=== PATIENT | female | born 1950 | race Caucasian/White ===

== ENCOUNTER → 2016-12-17 | Outpatient (CLI) | payer OTHER ==
[~2016-12-17] MED LIST: ALBUTEROL MININEB NEB; ALBUTEROL17 GM; ALBUTEROL17 GM INH; ALBUTEROL2.5 MG/0.5 IH; ALLEGRA30 MG/5 ML; AMARYL; AMARYL2 MG; ATARAX; Asmanex IH; CALAN PO; CARDURA1 M1; CARDURA4 M1 PO; CARDURA4 M2; CHLORTHALIDONE25 MG PO; CLINDAMYCIN HC300 MG PO; COMBIVENT MININEB; COMBIVENT RESPIM4 GM IH; COMBIVENT RESPIM4 GM INH; DULERA 100 MCG/13 GM; FEXOFENADINE HC30 MG PO; FLEXATINE; FLUOXETINE HCL40 M1 PO; FLUOXETINE HCL60 MG PO; GLUCOPHAGE500 M1 PO; GLUCOTROL PO; HYDROCHLOROTHIA25 MG PO; HYDROXYZINE HCL25 M1; HYDROXYZINE HCL25 M1 PO; K-DUR20 ME1 PO; KEFLEX PO; LASIX20 MG; LEVAQUIN PO; LISINOPRIL PO; LORTAB 5-325 M1 EACH PO; LOSARTAN POTAS100 MG PO; LOSARTAN POTASS25 MG; MELATONIN3 M4 PO; METFORMIN PO; MUCINEX D1 TAB.SR1 PO; NAPROSYN375 MG PO; NYSTATIN-TRIAMC15 G1; OXYGEN; PREDNISONE PO; PRINCIPEN500 M1 PO; PROZAC PO; PROZAC10 M1; SARAFEM20 MG; SYMBICORT INH; TRAZODONE HCL100 MG PO; TRAZODONE PO; ULTRAM PO; VERAPAMIL ER100 MG; VERAPAMIL ER240 M1; VERAPAMIL ER240 M1 PO; VIBRAMYCIN100 M1 DOB; VITAMIN D22000 UNIT PO; VOLTAREN75 MG PO; ZITHROMAX PO
--- NOTE | ~2016-12-17 | US77 ---
[facility]. [facility] A Service of [facility] & [facility] RADIOLOGY TEXT RESULTS PATIENT: LUISA PITT LOCATION: [facility] : 54 UNIT #: [id number] AGE: [address]: Pasha Dillard MD SEX: F ORDER DR: [id number] [place] [id number] MR#: [id number] Acc #: [id number] NAME: LUISA PITT : 1950 SEX: F STUDY DATE/TIME: 12/17/2016 9:14 UNIT: [facility] ROOM: STUDY DESCRIPTION: US Kidney Bilateral Complete Attending Physician: Pasha Dillard M.D. Referring Physician: Pasha Dillard M.D. Ordering Physician: Pasha Dillard M.D. Primary Care Physician: María Elena Cantrell Aprn MEDICAL IMAGING REPORT This report is preliminary unless electronic signature is present. EXAM Renal ultrasound complete, 12/17/2016. HISTORY Chronic kidney disease stage 2, diabetes and hypertension, followup. FINDINGS The right kidney measures 9.5 cm while the left kidney measures 10.7 cm in longitudinal dimensions. There is no evidence of hydronephrosis or nephrolithiasis. No cystic or solid mass lesions were seen on either kidney. There is normal renal cortical echogenicity. Images of the bladder are normal. IMPRESSION 1. Negative renal ultrasound. 2. Images of the bladder are normal. Dictated by... Josh Gamez M.D. THIS IS AN ELECTRONICALLY VERIFIED REPORT Josh Gamez M.D. at 12/18/2016 8:11 AM ESAU/misael TD: 12/17/2016 11:51 JOB #: [id number] MEDICAL IMAGING REPORT Page 1 of 1
== END | disposition home or self-care (01) ==
LOC: SGUS 08:46
DX: N18.2 Chronic kidney disease, stage 2 (mild) (principal)
CPT/HCPCS: 76775

== ENCOUNTER 2017-03-02 15:15 | Emergency (ER) | payer OTHER ==
--- NOTE | ~2017-03-02 | CR72 ---
[facility]. [facility] A Service [facility] RADIOLOGY TEXT RESULTS PATIENT: LUISA PITT LOCATION: SED : 54 UNIT #: [id number] AGE: [address]: Jennifer Dean PAC SEX: F ORDER DR: [id number] [place] [id number] MR#: [id number] Acc #: [id number] NAME: LUISA PITT. : 1950 SEX: F STUDY DATE/TIME: 03/02/2017 16:13 UNIT: SED ROOM: STUDY DESCRIPTION: CR Chest Single View Portable Attending Physician: Jennifer Dean Pa-C Ordering Physician: Jennifer Dean Pa-C Primary Care Physician: María Elena Cantrell Aprn MEDICAL IMAGING REPORT This report is preliminary unless electronic signature is present. EXAM Frontal chest, 03/02/2017 INDICATION 66-year-old female with shortness of air with exertion for a week. Hypertension. TECHNIQUE Frontal chest compared 10/16/2015 FINDINGS Cardiac silhouette is within normal limits. The vascularity is unremarkable. Lung volumes are low and there is bronchovascular crowding. Exam is degraded by body habitus. No dense consolidation, effusion or pneumothorax. IMPRESSION Low-volume image otherwise negative frontal chest. Dictated by... Bradley Jewell M.D. THIS IS AN ELECTRONICALLY VERIFIED REPORT Bradley Jewell M.D. at 03/03/2017 2:30 PM Marvin TD: 03/03/2017 00:00 JOB #: [id number] MEDICAL IMAGING REPORT [facility] A Service [facility] RADIOLOGY TEXT RESULTS PATIENT: LUISA PITT LOCATION: SED : 54 UNIT #: [id number] AGE: [address]: Jennifer Dean PAC SEX: F ORDER DR: Page 1 of 1
--- NOTE | ~2017-03-02 | EKG ---
PATIENT: LUISA PITT UNIT #: [id number] Ventricular Rate: 83 BPM Atrial Rate: 83 BPM P-R Interval: 188 ms QRS Duration: 70 ms Q-T Interval: 348 ms QTC Calculation(Bezet): 408 ms P [place]: 57 degrees Calculated R [place]: 51 degrees Calculated T [place]: 71 degrees Diagnosis Line: Normal sinus rhythm Diagnosis Line: Nonspecific ST abnormality Diagnosis Line: Abnormal ECG Diagnosis Line: When compared with ECG of 21-SEP-2014 13:10, Diagnosis Line: No significant change was found Diagnosis Line: Confirmed by KUNAL AVILES MD ([id number]) on Diagnosis Line: 03/11/2017 8:27:45 AM INTERPRETING MD: TRACI CHAVEZ
[~2017-03-02 15:15] MED LIST changes: -ALBUTEROL17 GM; -AMARYL2 MG; -CARDURA4 M2; -COMBIVENT MININEB; -DULERA 100 MCG/13 GM; -HYDROXYZINE HCL25 M1; -LASIX20 MG; -LOSARTAN POTASS25 MG; -NYSTATIN-TRIAMC15 G1; -SARAFEM20 MG; -VERAPAMIL ER240 M1; -VITAMIN D22000 UNIT PO
[2017-03-02] MEDS ORDERED: HYDROXYZINE HCL25 M1 (15:31)
[2017-03-02] MEDS ORDERED: VITAMIN D22000 UNIT PO (15:31)
[2017-03-02] MEDS ORDERED: AMARYL2 MG (15:32)
[2017-03-02] MEDS ORDERED: VERAPAMIL ER240 M1 (15:32)
[2017-03-02] MEDS ORDERED: CARDURA4 M2 (15:32)
[2017-03-02] MEDS ORDERED: SARAFEM20 MG (15:32)
[2017-03-02] MEDS ORDERED: COMBIVENT MININEB (15:33)
[2017-03-02] MEDS ORDERED: LASIX20 MG (15:33)
[2017-03-02] MEDS ORDERED: ALBUTEROL17 GM (15:33)
[2017-03-02] MEDS ORDERED: NYSTATIN-TRIAMC15 G1 (15:33)
[2017-03-02] MEDS ORDERED: LOSARTAN POTASS25 MG (15:33)
[2017-03-02] MEDS ORDERED: DULERA 100 MCG/13 GM (15:34)
[2017-03-02 16:20] LABS: BASOPHIL% 0.5 % (0-2.5); DIFF IND NO; EOSINOPHIL# 0.2 X10e3 (0-0.7); HEMATOCRIT 35.3 % (35.0-45.0); HEMOGLOBIN 11.3 gm/dL (12.0-16.0); LYMPHOCYTE# 0.6 X10e3 (1.0-3.5); MEAN CELL VOLUME 83.9 FL (83-96); MEAN CORPUSCULAR HGB CONC 32.2 g/dL (30-36); MEAN PLATELET VOLUME 6.8 FL (6.5-11.5); MONOCYTE# 0.9 X10e3 (0-1.0); MONOCYTE% 10.5 % (3.0-12.0); NEUTROPHIL# 6.5 X10e3 (1.5-7.1); PLATELET COUNT 231 X10e3 (140-420); RED CELL DISTRIBUTION WIDTH 14.9 % (11.0-15.5); WHITE BLOOD COUNT 8.1 X10e3 (4.0-10.5)
[2017-03-02 16:25] LABS: URINE SOURCE CLEAN CATCH
[2017-03-02 16:27] LABS: URINE APPEARANCE CLEAR; URINE BILIRUBIN NEG (NEG); URINE BLOOD TRACE-LYSED (NEG); URINE COLOR YELLOW; URINE GLUCOSE NEG (NORM); URINE KETONE NEG (NEG); URINE LEUKOCYTE ESTERASE NEG (NEG); URINE NITRATE NEG (NEG); URINE PH 7.5 (5-8); URINE PROTEIN 2+ (NEG); URINE UROBILINOGEN 0.2 MG/DL (NORM)
[2017-03-02 16:30] LABS: MICRO INDICATED? YES
[2017-03-02 16:35] LABS: CULTURE INDICATED? YES; URINE BACTERIA 1+ (NEG); URINE RBC 0-2 /[HPF] (0-2); URINE SQUAMOUS EPITHELIAL CELL FEW /[HPF]; URINE WBC 0-2 /[HPF] (0-5)
[2017-03-02 16:40] LABS: ALBUMIN SERUM 3.4 g/dL (3.5-5.0); BILIRUBIN, DIRECT 0.1 mg/dL (0.0-0.2); BILIRUBIN,INDIRECT 0.3 mg/dL (0.0-0.9); BILIRUBIN,TOTAL 0.4 mg/dL (0.2-2.0); BUN/CREATININE RATIO 18.46; CALCIUM SERUM 9.5 mg/dL (8.4-10.2); CREATININE SERUM 1.3 mg/dL (0.6-1.4); GLOM FILT RATE Estimated 43.3 mL/min (>60); POTASSIUM 4.7 mmol/L (3.5-5.1); PROTEIN TOTAL SERUM 8.4 g/dL (6.0-8.3)
== END 2017-03-02 18:59 | disposition home or self-care (01) ==
LOC: SED 15:15
PROVIDERS: Physician Assistant Medical
DX: L03.311 Cellulitis of abdominal wall (principal); L02.211 Cutaneous abscess of abdominal wall; E11.9 Type 2 diabetes mellitus without complications; I10 Essential (primary) hypertension; F32.9 Major depressive disorder, single episode, unspecified; Z87.891 Personal history of nicotine dependence
CPT/HCPCS: 36415; 71010; 80048; 80076; 81003; 82947; 83605; 85025; 87040; 87086; 93005; 99285